=== PATIENT | female | born 1990 | race African-American/Black ===

== ENCOUNTER 2020-03-03 16:01 | Emergency (ER) | payer MEDICAID ==
[~2020-03-03] VITALS: Ht 170.2 cm; Wt 113.0 kg
[2020-03-03] MEDS ORDERED: ACETAMINOPHEN 325MG TABLET PO ONE (18:15)
[2020-03-03] MEDS ORDERED: HYDROCODONE/ACETAMINOPHEN 5/325MG TABLET PO ONE (19:45)
[2020-03-03 19:50] VITALS: BP 142/80
== END 2020-03-03 19:54 | disposition home or self-care (01) ==
LOC: ER 16:07
DX: S00.83XA Contusion of other part of head, initial encounter (principal); H11.31 Conjunctival hemorrhage, right eye; R51 Headache; V49.59XA Passenger injured in collision with other motor vehicles in traffic accident, initial encounter; W22.12XA Striking against or struck by front passenger side automobile airbag, initial encounter; Y93.89 Activity, other specified; Y92.488 Other paved roadways as the place of occurrence of the external cause
CPT/HCPCS: 70486; 99285